=== PATIENT | female | born 1980 | race Two or more races ===

== ENCOUNTER 2020-02-24 10:06 | Outpatient (CLI) | payer OTHER | END 2020-02-24 13:33 | disposition home or self-care (01) | LOC: EDBD 10:06 → NST 10:06 | DX: Z34.82 Encounter for supervision of other normal pregnancy, second trimester (principal) ==

== ENCOUNTER 2020-02-29 16:53 | Outpatient (CLI) | payer OTHER | END 2020-02-29 17:00 | disposition home or self-care (01) | LOC: NST 16:53 | DX: Z34.83 Encounter for supervision of other normal pregnancy, third trimester (principal) ==